=== PATIENT | female | born 1965 | race Caucasian/White ===

== ENCOUNTER 2024-05-08 06:51 | Emergency (ER) | payer MEDICARE, MEDICAID ==
[~2024-05-08] VITALS: Ht 162.6 cm; Wt 63.0 kg
[2024-05-08 06:55] VITALS: O2SAT 99
[2024-05-08] MEDS: OXYCODONE HCL/ACETAMINOPHEN 5/325MG TABLET PO ONE (08:13)
[2024-05-08] MEDS ORDERED: TOPUD PO (08:45)
[2024-05-08 09:26] VITALS: BP 144/88; PULSE 90; RESP 18; TEMP 98.3
== END 2024-05-08 09:27 | disposition home or self-care (01) ==
LOC: ER 07:06
DX: S20.211A Contusion of right front wall of thorax, initial encounter (principal); W51.XXXA Accidental striking against or bumped into by another person, initial encounter; Y93.89 Activity, other specified; Y92.89 Other specified places as the place of occurrence of the external cause; Y99.8 Other external cause status
CPT/HCPCS: 71101; 99283